=== PATIENT | female | born 1980 | race Caucasian/White ===

== ENCOUNTER 2022-10-03 21:30 | Emergency (ER) | payer OTHER ==
[2022-10-03 21:51] VITALS: BP 111/73; PULSE 100; RESP 20; TEMP 100.4; BMI 29.2
[2022-10-03] MEDS ORDERED: ACETAMINOPHEN 500 MG TABLET (FP) PO ONE (23:53)
[2022-10-03] MEDS ORDERED: ALBUTEROL SO4 2.5/IPRATROPIUM 0.5 INH SOL 3 ML VIAL.NEB. NEB ONE (23:53)
[2022-10-03] MEDS ORDERED: ACETAMINOPHEN 500 MG TABLET (FP) ONE (23:53)
[2022-10-03] MEDS ORDERED: IBUPROFEN 600 MG TABLET (FP) PO ONE ×2 (23:53)
[2022-10-04] MEDS ORDERED: ALBUTEROL SO4 2.5/IPRATROPIUM 0.5 INH SOL 3 ML VIAL.NEB. NEB ONE
== END 2022-10-04 01:48 | disposition home or self-care (01) ==
LOC: JER 21:30
PROC: 3E0F7GC Introduction of Other Therapeutic Substance into Respiratory Tract, Via Natural or Artificial Opening (ICD-10-PCS; principal; 2022-10-03)
DX: J06.9 Acute upper respiratory infection, unspecified (principal); R05.9 Cough, unspecified
CPT/HCPCS: 0241U-QW; 71046-TC-FY; 99284-25

== ENCOUNTER 2025-05-14 12:49 | Emergency (ER) | payer OTHER ==
[2025-05-14 12:59] VITALS: BP 110/75; PULSE 83; RESP 20; TEMP 97.7; BMI 30.4
[2025-05-14] MEDS ORDERED: predniSONE 20 MG TABLET (UD) ONE (14:07)
[2025-05-14] MEDS ORDERED: diphenhydrAMINE HCL 25 MG CAPSULE (FP) PO ONE (14:08)
[2025-05-14 14:19] LABS: ABSOLUTE IMMATURE GRANULOCYTES 0.01 x10^3/uL (0.0-0.031); BASOPHILS # 0.06 x10^3/uL (0.01-0.08); EOSINOPHIL % 8.1 % (0.7-5.8); EOSINOPHILS # 0.58 x10^3/uL (0.04-0.36); HEMATOCRIT 41.5 % (34.1-44.9); HEMOGLOBIN 13.3 g/dL (11.2-15.7); MEAN CELL VOLUME 90.4 fl (79.4-94.8); MEAN PLT VOLUME 10.2 fl (9.4-12.3); MONOCYTE # 0.68 x10^3/uL (0.24-0.86); MONOCYTE % 9.5 % (4.7-12.5); PLATELET COUNT 271 x10^3/uL (182-369); RDW 13.8 % (12.2-17.1)
[2025-05-14] MEDS: predniSONE 20 MG TABLET (UD) PO ONE (14:24)
[2025-05-14] MEDS: diphenhydrAMINE HCL 25 MG CAPSULE (FP) PO ONE (14:24)
[2025-05-14 14:40] LABS: POTASSIUM 3.8 mmol/L (3.5-5.1)
[2025-05-14 14:43] LABS: CALCIUM 9.4 mg/dL (8.5-10.1)
[2025-05-14 14:44] LABS: ALBUMIN 4.1 g/dl (3.4-5.0); BLOOD UREA NITROGEN 9.7 mg/dL (7-18)
[2025-05-14 14:47] LABS: CREATININE 0.6 mg/dL (0.55-1.3)
[2025-05-14 14:49] LABS: BILIRUBIN,TOTAL 0.6 mg/dL (0.2-1); TOT PROT 6.8 g/dl (6.4-8.2)
[2025-05-14 16:06] LABS: HCV DIAGNOSTIC IN-HOUSE W/RFLX NON-REACTIVE (NONREACTIVE); HIV INTERPRETATION NEGATIVE (NEGATIVE)
== END 2025-05-14 15:25 | disposition home or self-care (01) ==
LOC: JERFT 12:49
DX: R21 Rash and other nonspecific skin eruption (principal); L50.9 Urticaria, unspecified; L29.9 Pruritus, unspecified; R11.0 Nausea; R10.9 Unspecified abdominal pain
CPT/HCPCS: 36415; 80053; 84703; 85025; 86803; 87389; 99283-25